=== PATIENT | female | born 1960 | race Caucasian/White ===

== ENCOUNTER 2018-05-06 07:24 | Day surgery (SDC) | payer BC ==
[~2018-05-06] VITALS: Ht 175.3 cm; Wt 70.3 kg
[~2018-05-06 07:24] MED LIST: ALBUTEROL SUL0.083 % IN; CALCIUM600 M1 PO; FLONASE SE27.5 MCG/S NAB; FOSAMAX PLUS PO; IMITREX25 MG PO; MIRALAX3350 N1 PO
[2018-05-06 09:03] VITALS: BP 121/59
== END 2018-05-06 09:25 | disposition home or self-care (01) | DRG 951 ==
LOC: ENDO 07:24
PROVIDERS: ATTEND Surgery
PROC: 0DJD8ZZ Inspection of Lower Intestinal Tract, Via Natural or Artificial Opening Endoscopic (ICD-10-PCS; principal; 2018-05-06)
DX: Z12.11 Encounter for screening for malignant neoplasm of colon (principal); Q43.8 Other specified congenital malformations of intestine; E05.90 Thyrotoxicosis, unspecified without thyrotoxic crisis or storm

== ENCOUNTER 2020-10-11 05:37 | Emergency (ER) | payer BC ==
[~2020-10-11] VITALS: Ht 175.3 cm; Wt 68.0 kg
[2020-10-11 07:31] LABS: HEMATOCRIT 39.6 % (37.0-47.0); HEMOGLOBIN 12.4 g/dl (12.0-16.0); IMMATURE GRANULOCYTES 0.4 % (0.0-5.0); MEAN CELL VOLUME 90.6 fL CALC (80.0-100.0); MEAN CORPUSCULAR HGB 28.4 pG CALC (26.0-32.0); MEAN CORPUSCULAR HGB CONC 31.3 g/dL CAL (32.0-36.0); NEUT# 5.46 thou/uL (2.00-7.15); RED BLOOD COUNT 4.37 mill/uL (4.20-5.60); RED CELL DISTRI WIDTH 14.1 % (11.5-15.5)
[2020-10-11 07:36] LABS: ALBUMIN 3.9 g/dL (3.2-5.0); ALKALINE PHOSPHATASE 66 u/l (38-126); ANION GAP 8 (6-22 (CALC)); BILIRUBIN, TOTAL 0.5 mg/dL (0.0-1.4); BUN 11 mg/dL (7-17); BUN/CREATININE RATIO 16 (12-20 (CALC)); CARBON DIOXIDE 29 mmol/l (22-30); CHLORIDE 108 mmol/l (95-108); CREATININE 0.7 mg/dL (0.5-1.0); GFR > 60 ML/MIN (>=60 (CALC)); GFR FOR AFR.AMER. > 60 ML/MIN (>=60 (CALC)); POTASSIUM 3.6 mmol/l (3.5-5.1); SGOT/AST 28 u/l (14-36); SODIUM 141 mmol/l (137-146); TOTAL PROTEIN 6.2 g/dL (6.3-8.2)
[2020-10-11] MEDS ORDERED: DULERA 50-5 MCG1 AER IN (08:11)
[2020-10-11] MEDS ORDERED: PATADAY IN (08:14)
[2020-10-11] MEDS ORDERED: SINGULAIR10 MG PO (08:15)
[2020-10-11] MEDS ORDERED: AMOX/K CLAV875 M1 PO (08:20)
[2020-10-11 08:25] LABS: ACT PARTIAL THROMBO TIME 33.2 SECONDS (20.0-32.5); PROTHROMBIN TIME 9.8 SECONDS (9.0-12.5)
[2020-10-11 08:30] VITALS: BP 105/54
== END 2020-10-11 08:34 | disposition home or self-care (01) | DRG 103 ==
LOC: ED 05:37
DX: R51.9 Headache, unspecified (principal); J32.0 Chronic maxillary sinusitis; G43.909 Migraine, unspecified, not intractable, without status migrainosus